=== PATIENT | female | born 1970 | race American Indian/Alaskan Native ===

== ENCOUNTER 2017-03-03 18:28 | Emergency (ER) | payer BC ==
[2017-03-03 19:14] LABS: Basophils % (Auto) 0.7 % (0.0-1.8); Eosinophils % (Auto) 4.5 % (0.0-4.3); Hematocrit 39.8 % (30.3-42.9); Hemoglobin 13.7 gm/dl (10.1-14.3); Mean Corpuscular HGB Conc 35 % (30-34); Mean Corpuscular Hemoglobin 30 pg (28-32); Mean Corpuscular Volume 86 fl (79-97); Platelet Count 214 K/mm3 (140-440); Red Blood Count 4.64 M/mm3 (3.65-5.03); Red Cell Distribution Width 13.9 % (13.2-15.2); White Blood Count 4.2 K/mm3 (4.5-11.0)
[2017-03-03 19:22] LABS: Anion Gap 14 mmol/L; BUN/Creatinine Ratio 11; Blood Urea Nitrogen 8 mg/dL (7-17); Calcium 8.7 mg/dL (8.4-10.2); Carbon Dioxide 26 mmol/L (22-30); Chloride 105.2 mmol/L (98-107); Glucose 94 mg/dL (65-100); Potassium 3.8 mmol/L (3.6-5.0); Sodium 141 mmol/L (137-145)
[2017-03-03] MEDS ORDERED: CATAPRES PO ONE (22:21)
--- NOTE | 2017-03-03 22:26 | Emergency Department Report ---
ED ENT HPI - General Chief complaint: Sore Throat Stated complaint: SORE THROAT Time Seen by Provider: 03/03/17 22:14 Source: patient Mode of arrival: Ambulatory Limitations: No Limitations - History of Present Illness Initial comments: This is a 46-year-old female nontoxic, well nourished in appearance, no acute signs of distress presents to the ED complaining of sore throat x2 days. Patient describes sore throat as sensation as swallowing razor blades. Patient denies any fever, chills, headache, stiff neck, n/v, chest pain, shortness breath, numbness, tingling, abdominal pain or back pain. Patient stated she has history of hypertension and has been not taking her Spanish medication. Patient denies any blood pressure medication. She does have a primary care doctor in [place] and that she will follow up with for a prescription. Patient denies any allergies. Past history includes hyperthyroidism. MD complaint: sore throat -: Gradual, days(s) (2) Location: throat Severity: mild Quality: other (sentation as swallowing razer blades) Consistency: constant Improves with: none Worsens with: none Associated Symptoms: sore throat. denies: fever, cough, gum swelling, toothache , pain with swallowing, tinnitus, hearing loss, discharge from ear, rhinorrhea - Related Data Previous Rx's Medication Instructions Recorded Last Taken Type Amoxicillin 500 mg PO BID #20 capsule 03/03/17 Unknown Rx Nystas/Diphen/Xyl Visc/Mylanta 15 ml MM Q8H PRN 10 Days 03/03/17 Unknown Rx [Magic Mouthwash] Allergies Allergy/AdvReac Type Severity Reaction Status Date / Time No Known Allergies Allergy Unverified 03/03/17 18:34 ED Dental HPI - General Chief complaint: Sore Throat Stated complaint: SORE THROAT Time Seen by Provider: 03/03/17 22:14 Source: patient Mode of arrival: Ambulatory Limitations: No Limitations - Related Data Previous Rx's Medication Instructions Recorded Last Taken Type Amoxicillin 500 mg PO BID #20 capsule 03/03/17 Unknown Rx Nystas/Diphen/Xyl Visc/Mylanta 15 ml MM Q8H PRN 10 Days 03/03/17 Unknown Rx [Magic Mouthwash] Allergies Allergy/AdvReac Type Severity Reaction Status Date / Time No Known Allergies Allergy Unverified 03/03/17 18:34 ED Review of Systems ROS: Stated complaint: SORE THROAT Other details as noted in HPI Constitutional: denies: chills, fever Eyes: denies: eye pain, eye discharge, vision change ENT: throat pain. denies: ear pain Respiratory: denies: cough, shortness of breath, wheezing Cardiovascular: denies: chest pain, palpitations Endocrine: no symptoms reported Gastrointestinal: denies: abdominal pain, nausea, diarrhea Genitourinary: denies: urgency, dysuria, discharge Musculoskeletal: denies: back pain, joint swelling, arthralgia Skin: denies: rash, lesions Neurological: denies: headache, weakness, paresthesias Psychiatric: denies: anxiety, depression Hematological/Lymphatic: denies: easy bleeding, easy bruising ED Past Medical Hx - Past Medical History Previous Medical History?: Yes Hx Hypertension: Yes (noncompliant) Additional medical history: hyperthyroidism, Vaginal dleivery x 6, Heavy vaginal bleeding - Surgical History Past Surgical History?: Yes Additional Surgical History: Tubaligation, Uterine ablation - Social History Smoking Status: Never Smoker Substance Use Type: Non Opiate Pain, Other - Medications Home Medications: Home Medications Medication Instructions Recorded Confirmed Last Taken Type Amoxicillin 500 mg PO BID #20 capsule 03/03/17 Unknown Rx Nystas/Diphen/Xyl Visc/Mylanta 15 ml MM Q8H PRN 10 Days 03/03/17 Unknown Rx [Magic Mouthwash] ED Physical Exam - General Limitations: No Limitations General appearance: alert, in no apparent distress - Head Head exam: Present: atraumatic, normocephalic, normal inspection - Eye Eye exam: Present: normal appearance, PERRL, EOMI. Absent: scleral icterus, conjunctival injection, nystagmus, periorbital swelling, periorbital tenderness Pupils: Present: normal accommodation - ENT ENT exam: Present: mucous membranes moist, TM's normal bilaterally, normal external ear exam - Expanded ENT Exam Expanded Ear exam: Present: normal external inspection Mouth exam: Present: normal external inspection, tongue normal. Absent: drooling, trismus, muffled voice, tongue elevation, laceration Teeth exam: Present: normal inspection Throat exam: Positive: tonsillar erythema, tonsillomegaly (2 +), tonsillar exudate, other (Uvula midline. No abscess or swelling noted. ). Negative: R peritonsillar mass, L peritonsillar mass - Neck Neck exam: Present: normal inspection, full ROM. Absent: tenderness, meningismus, lymphadenopathy, thyromegaly - Respiratory Respiratory exam: Present: normal lung sounds bilaterally. Absent: respiratory distress, wheezes, rales, rhonchi, stridor, chest wall tenderness, accessory muscle use, decreased breath sounds, prolonged expiratory - Cardiovascular Cardiovascular Exam: Present: regular rate, normal rhythm, normal heart sounds. Absent: bradycardia, tachycardia, irregular rhythm, systolic murmur, diastolic murmur, rubs, gallop - GI/Abdominal GI/Abdominal exam: Present: soft, normal bowel sounds. Absent: distended, tenderness, guarding, rebound, rigid, diminished bowel sounds - Rectal Rectal exam: Present: deferred - Extremities Exam Extremities exam: Present: normal inspection, full ROM, normal capillary refill. Absent: tenderness, pedal edema, joint swelling, calf tenderness - Back Exam Back exam: Present: normal inspection, full ROM. Absent: tenderness, CVA tenderness (R), CVA tenderness (L), muscle spasm, paraspinal tenderness, vertebral tenderness, rash noted - Neurological Exam Neurological exam: Present: alert, oriented X3, CN II-XII intact, normal gait, reflexes normal - Psychiatric Psychiatric exam: Present: normal affect, normal mood - Skin Skin exam: Present: warm, dry, intact, normal color. Absent: rash ED Course Vital Signs 03/03/17 03/03/17 03/03/17 18:35 22:31 22:34 Temperature 97.9 F Pulse Rate 87 86 86 Respiratory 20 18 Rate Blood Pressure 162/102 158/90 Blood Pressure 158/90 [Left] O2 Sat by Pulse 99 99 Oximetry - Reevaluation(s) Reevaluation #1: 03/03/17 22:36 Patient is speaking in full sentences with no signs of distress noted. ED Medical Decision Making - Lab Data Result diagrams: 03/03/17 18:54 03/03/17 18:54 - Medical Decision Making 46-year-old female that presents with tonsillitis with exudate, hypertension and hyperthyroidism. Patient was examined by me and patient is stable. Patient was educated and instructed about risks about hypertension and hyperthyroidism and patient states she understands and will follow-up with her primary care doctor in 24 hours. Patient was instructed to keep a daily diary of blood pressure and presented to her primary care doctor. Patient received viscous lidocaine in the emergency room for sore throat which patient stated symptoms have subsided. Patient be treated with amoxicillin at discharge. Patient was also received Magic mouthwash. Patient was instructed to follow-up with a primary care doctor in 24 hours or if symptoms worsen and continue return to emergency room as soon as possible possible. Patient is hemodynamically stable with stable vital signs. Patient states he is feeling better. At time time of discharge, the patient does not seem toxic or ill in appearance. No acute signs of distress noted. Patient agrees to discharge treatment plan of care. No further questions noted by the patient. Critical care attestation.: If time is entered above; I have spent that time in minutes in the direct care of this critically ill patient, excluding procedure time. ED Disposition Clinical Impression: Tonsillitis with exudate, Hyperthyroidism Hypertension Qualifiers: Hypertension type: unspecified Qualified Code(s): I10 - Essential (primary) hypertension Disposition: TO HOME OR SELFCARE Is pt being admited?: No Does the pt Need Aspirin: No Condition: Stable Instructions: Amoxicillin (By mouth), Tonsillitis (ED), Hypertension (ED) Additional Instructions: Keep a daily report of your blood pressure and present it to your primary care doctor. Follow-up with a primary care doctor in 24 hours for your hypertension or if symptoms worsen or new symptoms and continue return to the emergency department as soon as possible. Prescriptions: Amoxicillin 500 mg PO BID #20 capsule Nystas/Diphen/Xyl Visc/Mylanta [Magic Mouthwash] 15 ml MM Q8H PRN 10 Days PRN Reason: Sore Throat Referrals: PRIMARY MD NICK [Primary Care Provider] - 3-5 Days HEENA PARMRA MD [Staff Physician] - 3-5 Days RAEGAN HONEYCUTT MD [Staff Physician] - 3-5 Days [facility] [Outside] - 3-5 Days [facility] [Outside] - 3-5 Days Forms: Work/School Release Form(ED)
[2017-03-03] MEDS ORDERED: LIDOCAINE VISCOUS 2% MM NR (22:30)
[2017-03-03 22:32] VITALS: BP 158/90
[2017-03-03] MEDS ORDERED: LIDOCAINE VISCOUS 2% ONE (22:32)
[2017-03-03] MEDS ORDERED: LIDOCAINE VISCOUS 2% PO ONE (22:35)
== END 2017-03-03 23:13 | disposition home or self-care (01) ==
LOC: ED 18:28
DX: J03.90 Acute tonsillitis, unspecified (principal); E03.9 Hypothyroidism, unspecified; I10 Essential (primary) hypertension
CPT/HCPCS: 36415; 80048; 84439; 84443; 85025; 99283

== ENCOUNTER 2017-03-10 09:43 | Emergency (ER) | payer BC ==
[2017-03-10 11:08] LABS: Basophils % (Auto) 1.1 % (0.0-1.8); Eosinophils % (Auto) 3.1 % (0.0-4.3); Hematocrit 43.6 % (30.3-42.9); Hemoglobin 15.1 gm/dl (10.1-14.3); Mean Corpuscular HGB Conc 35 % (30-34); Mean Corpuscular Hemoglobin 30 pg (28-32); Mean Corpuscular Volume 86 fl (79-97); Platelet Count 257 K/mm3 (140-440); Red Blood Count 5.07 M/mm3 (3.65-5.03); Red Cell Distribution Width 14.3 % (13.2-15.2); White Blood Count 4.2 K/mm3 (4.5-11.0)
[2017-03-10 11:09] LABS: Anion Gap 15 mmol/L; BUN/Creatinine Ratio 11; Blood Urea Nitrogen 8 mg/dL (7-17); Calcium 8.7 mg/dL (8.4-10.2); Carbon Dioxide 27 mmol/L (22-30); Creatine Kinase 71 units/L (30-135); Creatine Kinase MB < 1.0 ng/mL (0.0-4.0); Glucose 92 mg/dL (65-100); Potassium 4.2 mmol/L (3.6-5.0); Sodium 142 mmol/L (137-145)
--- NOTE | 2017-03-10 13:20 | Cat Scan Report ---
CRANIAL CT SCAN: History: Hypertension/headache. Serial contiguous axial images were obtained through the cranium. Intravenous contrast material was not administered. The ventricles are normal in size and appearance. There is no mass effect or midline shift. No areas of abnormally increased or decreased attenuation are seen. No mass lesion is seen. The mastoid air cells and visualized portions of the sinuses are normal. IMPRESSION: Cranial CT scan within normal limits.
[2017-03-10] MEDS ORDERED: NACL 0.9% 1000 ML 1,000 ML IV ONE (15:37)
[2017-03-10] MEDS ORDERED: CATAPRES PO ONE (15:37)
--- NOTE | 2017-03-10 17:10 | Emergency Department Report ---
ED Headache HPI - General Chief Complaint: Headache Stated Complaint: BLOOD PRESSURE HIGH Time Seen by Provider: 03/10/17 15:26 Source: patient Exam Limitations: no limitations - History of Present Illness Initial Comments: This is a 46-year-old female nontoxic, well nourished in appearance, no acute signs of distress presents to the ED complaining of headache and hypertension. Patient stated she has history of hypertension and stated she started to take her blood pressure medication Carvediolol since 4 days ago. Patient stated has also history of hyperthyroidism but does not take any medications for it. Patient was seen her 03/03/2017 for sore throat and was directed to follow-up with a primary care doctor in 24 hours for her hypertension and hyperthyroidism but patient stated has not had anytime till Tuesday with her PCP in [place] via the phone. Patient denies seeing a primary care doctor that was referee to her. Patient also stated has intermittent fatigue that resolves on its own. Patient describes headache as aching diffusely with level of 8/10. Patient denies thunderclap headache, blurry vision, fever, chills, nausea, vomiting, chest pain shortness of breath. Patient stated carvedilol has not helped her blood pressure. Patient denies any drug allergies or past medical history besides hypertension and hyperthyroidism. Timing/Duration: episodic Quality: mild Head Injury Location: other (diffuse) Recent Head Trauma: no recent headache/trauma Associated Symptoms: denies symptoms. denies: confusion, fatigue, facial pain, fever/chills, flushing, loss of consciousness, nausea/vomiting, nasal congestion , nasal drainage, numbness in legs/feet, rash, seizures, sinus infection, stiff neck, vision changes, weakness Allergies/Adverse Reactions: Allergies No Known Allergies Allergy (Unverified 03/03/17 18:34) Home Medications: Ambulatory Orders Amoxicillin 500 mg PO BID #20 capsule 03/03/17 Nystas/Diphen/Xyl Visc/Mylanta [Magic Mouthwash] 15 ml MM Q8H PRN 10 Days Butalb/Acetamin/Caff 50-325-40 [Fioricet] 1 tab PO Q8HR PRN #30 tablet 03/10/17 ED Review of Systems ROS: Stated complaint: BLOOD PRESSURE HIGH Other details as noted in HPI Constitutional: denies: chills, fever Eyes: denies: eye pain, eye discharge, vision change ENT: denies: ear pain, throat pain Respiratory: denies: cough, shortness of breath, wheezing Cardiovascular: denies: chest pain, palpitations Endocrine: no symptoms reported Gastrointestinal: denies: abdominal pain, nausea, diarrhea Genitourinary: denies: urgency, dysuria, discharge Musculoskeletal: denies: back pain, joint swelling, arthralgia Skin: denies: rash, lesions Neurological: denies: headache, weakness, paresthesias Psychiatric: denies: anxiety, depression Hematological/Lymphatic: denies: easy bleeding, easy bruising ED Past Medical Hx - Past Medical History Previous Medical History?: Yes Hx Hypertension: Yes (noncompliant) Additional medical history: hyperthyroidism, Vaginal dleivery x 6, Heavy vaginal bleeding - Surgical History Past Surgical History?: Yes Additional Surgical History: Tubaligation, Uterine ablation - Social History Smoking Status: Never Smoker Substance Use Type: Alcohol - Medications Home Medications: Home Medications Medication Instructions Recorded Confirmed Last Taken Type Amoxicillin 500 mg PO BID #20 capsule 03/03/17 Unknown Rx Nystas/Diphen/Xyl Visc/Mylanta 15 ml MM Q8H PRN 10 Days 03/03/17 Unknown Rx [Magic Mouthwash] Butalb/Acetamin/Caff 50-325-40 1 tab PO Q8HR PRN #30 tablet 03/10/17 Unknown Rx [Fioricet] ED Physical Exam - General Limitations: No Limitations General appearance: alert, in no apparent distress - Head Head exam: Present: atraumatic, normocephalic, normal inspection - Eye Eye exam: Present: normal appearance, PERRL, EOMI. Absent: scleral icterus, conjunctival injection, nystagmus, periorbital swelling, periorbital tenderness Pupils: Present: normal accommodation - ENT ENT exam: Present: normal exam, normal orophraynx, mucous membranes moist, TM's normal bilaterally, normal external ear exam - Neck Neck exam: Present: normal inspection, full ROM. Absent: tenderness, meningismus, lymphadenopathy, thyromegaly - Respiratory Respiratory exam: Present: normal lung sounds bilaterally. Absent: respiratory distress, wheezes, rales, rhonchi, stridor, chest wall tenderness, accessory muscle use, decreased breath sounds, prolonged expiratory - Cardiovascular Cardiovascular Exam: Present: regular rate, normal rhythm, normal heart sounds. Absent: irregular rhythm, systolic murmur, diastolic murmur, rubs, gallop - GI/Abdominal GI/Abdominal exam: Present: soft, normal bowel sounds. Absent: distended, tenderness, guarding, rebound, rigid, diminished bowel sounds - Rectal Rectal exam: Present: deferred - Extremities Exam Extremities exam: Present: normal inspection, full ROM, normal capillary refill. Absent: tenderness, pedal edema, joint swelling, calf tenderness - Back Exam Back exam: Present: normal inspection, full ROM. Absent: tenderness, CVA tenderness (R), CVA tenderness (L), muscle spasm, paraspinal tenderness, vertebral tenderness, rash noted - Neurological Exam Neurological exam: Present: alert, oriented X3, CN II-XII intact, normal gait, reflexes normal - Expanded Neurological Exam Expanded Patient oriented to: Present: person, place, time Speech: Present: fluid speech Cranial nerves: EOM's Intact: Normal, Gag Reflex: Normal, Tongue Deviation: Normal, Nystagmus: Normal, Facial Sensation: Normal, Facial Palsy with Forehead Movement: Normal, Facial Palsy without Forehead Movement: Normal Cerebellar function: Finger to Nose: Normal, Heel to Hirsch: Normal, Romberg: Normal Upper motor neuron: Timur Neglect: Normal, Pronator Drift: Normal, Babinski Sign : Normal, Sensory Extinction: Normal Sensory exam: Upper Extremity Light Touch: Normal, Upper Extremity Pin Prick: Normal, Upper Extremity Temperature: Normal, UE 2 Point Discrimination: Normal, Lower Extremity Light Touch: Normal, Lower Extremity Pin Prick: Normal, Lower Extremity Temperature: Normal, LE 2 Point Discrimination: Normal Motor strength exam: RUE: 5, LUE: 5, RLE: 5, LLE: 5 DTR: bicep (R): 2+, bicep (L): 2+, tricep (R): 2+, tricep (L): 2+, knee (R): 2+ , knee (L): 2+, ankle (R): 2+, ankle (L): 2+ Best Eye Response (Paterson): (4) open spontaneously Best Motor Response (Jorge): (6) obeys commands Best Verbal Response (Paterson): (5) oriented [place] Total: 15 - Psychiatric Psychiatric exam: Present: normal affect, normal mood - Skin Skin exam: Present: warm, dry, intact, normal color. Absent: rash ED Course Vital Signs 03/10/17 03/10/17 03/10/17 09:56 16:14 17:45 Temperature 98.5 F Pulse Rate 93 H 89 Respiratory 20 18 Rate Blood Pressure 173/117 172/102 Blood Pressure [Left] O2 Sat by Pulse 100 Oximetry 03/10/17 18:04 Temperature Pulse Rate 70 Respiratory 20 Rate Blood Pressure Blood Pressure 130/86 [Left] O2 Sat by Pulse 99 Oximetry - Reevaluation(s) Reevaluation #1: 03/10/17 17:18 Patient is speaking in full sentences with no signs of distress noted. Reevaluation #2: 03/10/17 18:07 Patient is smiling and stated she felt much better and is ready for discharge paperwork. Patient does not in any acute signs of distress. 03/10/17 18:07 Blood pressure is within normal limits as well as other vital signs. ED Medical Decision Making - Lab Data Result diagrams: 03/10/17 10:26 03/10/17 10:26 - Medical Decision Making 46-year-old female that presents with hypertension and hyperthyroidism. Patient was examined by me patient is stable. Patient received Catapres 0.2 mg in the ED which stabilized her blood pressure. Patient also received Toradol 30 mg IV in the ED. CT scan without contrast of head/brain has been obtained prior to my interview and dictated by radiologist with negative findings of any abnormalities. Patient was instructed to follow-up with a primary care doctor that she was referred in 24 hours for a elevated blood pressure and patient was instructed to keep a daily diary of blood pressure improved presented to the primary care doctor. Patient is hemodynamically stable with stable vital signs. Patient states he is feeling better. At time time of discharge, the patient does not seem toxic or ill in appearance. No acute signs of distress noted. Patient agrees to discharge treatment plan of care. No further questions noted by the patient. Critical care attestation.: If time is entered above; I have spent that time in minutes in the direct care of this critically ill patient, excluding procedure time. ED Disposition Clinical Impression: Hyperthyroidism Hypertension Qualifiers: Hypertension type: unspecified Qualified Code(s): I10 - Essential (primary) hypertension Disposition: DC-01 TO HOME OR SELFCARE Is pt being admited?: No Does the pt Need Aspirin: No Condition: Stable Instructions: Hypertension (ED), Hyperthyroidism (ED) Additional Instructions: Follow-up with a primary care doctor in 24 hours for your hyperthyroidism and hypertension or if symptoms worsen and continue he must return to emergency room as soon as possible. Prescriptions: Butalb/Acetamin/Caff 50-325-40 [Fioricet] 1 tab PO Q8HR PRN #30 tablet PRN Reason: Headache Referrals: [facility] [Outside] - 3-5 Days BENJAMIN ARTHUR MD [Staff Physician] - 24 Hours PRIMARY CARE, [Primary Care Provider] - 24 Hours Forms: Work/School Release Form(ED)
[2017-03-10] MEDS ORDERED: TORADOL IV ONE (17:30)
[2017-03-10 18:04] VITALS: BP 130/86
== END 2017-03-10 18:29 | disposition home or self-care (01) ==
LOC: ED 09:43
DX: I10 Essential (primary) hypertension (principal); E05.90 Thyrotoxicosis, unspecified without thyrotoxic crisis or storm
CPT/HCPCS: 36415; 70450; 80048; 82550; 82553; 84439; 84443; 84479; 84481; 84484; 84703; 85025; 93005; 93010; 96361; 96374; 99284; J1885; J7030

== ENCOUNTER 2017-04-01 08:10 | Outpatient (CLI) | payer BC ==
[2017-04-01 08:51] LABS: Blood Urea Nitrogen 10 mg/dL (7-17)
--- NOTE | 2017-04-01 11:13 | Cat Scan Report ---
CT scan of the abdomen and pelvis with IV contrast: History: Left upper quadrant abdominal pain. Lower abdominal pain. Findings: Normal lung bases. No pleural pericardial effusion. Small circumscribed hypodensity measuring 5 mm in diameter right lobe liver probably cyst. Normal gallbladder pancreas and spleen. Normal adrenals kidneys and bladder. Normal appendix. No evidence of diverticulitis. Patient's colon with moderate volume stool in colon. Impression: Gaseous colon with moderate volume stool in colon. Small cyst right lobe of liver.
== END 2017-04-01 08:11 | disposition home or self-care (01) ==
LOC: CT 08:10
PROVIDERS: ATTEND Nurse Practitioner
DX: K76.89 Other specified diseases of liver (principal); R10.30 Lower abdominal pain, unspecified
CPT/HCPCS: 36415; 74177; 82565; 84520; Q9967